=== PATIENT | male | born 1950 | race Caucasian/White ===

== ENCOUNTER → 2018-08-12 | Outpatient (CLI) | payer MEDICARE ==
[~2018-08-12] MED LIST: ABAC300; ALBU90OI INH; ASPI81CH PO; CHOL10002 PO; CITA20 PO; CLOP75 PO; CYAN1000 PO; HYDCHL50 PO; IRBE75 PO; ISOD40ER; ISOMON20 PO; LORA.5 PO; LOSA25; LOSHYD PO; METO25ER PO; OMEP20ER PO; PANT40 PO; PRAV20; PRAV20 PO; PRED20 PO; RANO500T PO; SIMV40 PO; SPACER IH
== END ==
LOC: LAB SHORT 17:40 → LAB 17:40
DX: L60.2 Onychogryphosis (principal); B35.1 Tinea unguium
CPT/HCPCS: 87220

== ENCOUNTER 2019-08-20 12:11 | Day surgery (SDC) | payer MEDICARE ==
[~2019-08-20] VITALS: Ht 182.9 cm; Wt 121.7 kg
[~2019-08-20 12:11] MED LIST changes: +ATORVASTATIN CA80 MG PO; +NARCAN4 MG NS; +Nitrostat0.4 MG SL; +Percocet 5-3251 EACH PO
== END 2019-08-20 14:05 | disposition home or self-care (01) ==
LOC: ORSCSDS 12:11
PROVIDERS: Internal Medicine Gastroenterology
PROC: 0DBH8ZX Excision of Cecum, Via Natural or Artificial Opening Endoscopic, Diagnostic (ICD-10-PCS; principal; 2019-08-20 13:30)
PROC: 0DBK8ZX Excision of Ascending Colon, Via Natural or Artificial Opening Endoscopic, Diagnostic (ICD-10-PCS; principal; 2019-08-20 13:30)
DX: Z12.11 Encounter for screening for malignant neoplasm of colon (principal); K63.5 Polyp of colon; K57.30 Diverticulosis of large intestine without perforation or abscess without bleeding; K64.8 Other hemorrhoids; Z86.010 Personal history of colon polyps; I10 Essential (primary) hypertension; E78.5 Hyperlipidemia, unspecified; G47.33 Obstructive sleep apnea (adult) (pediatric); J45.909 Unspecified asthma, uncomplicated; K21.9 Gastro-esophageal reflux disease without esophagitis; Z79.82 Long term (current) use of aspirin; Z79.899 Other long term (current) drug therapy
CPT/HCPCS: 88305; J2704; J7120

== ENCOUNTER 2020-08-22 13:09 | Emergency (ER) | payer MEDICARE, OTHER ==
[~2020-08-22] VITALS: Ht 182.9 cm; Wt 122.5 kg
[2020-08-22 13:45] LABS: BASOPHILS ABSOLUTE AUTO 0.05 K/mm3 (0.00-0.23); BASOPHILS PERCENT AUTO 1 % (0-2); EOSINOPHILS ABSOLUTE AUTO 0.16 K/mm3 (0.00-0.68); EOSINOPHILS PERCENT AUTO 2 % (0-6); Hematocrit 41.7 % (37.0-53.0); Hemoglobin 14.5 g/dL (13.5-17.5); IMMATURE GRAN ABSOLUTE AUTO 0.03 K/mm3 (0.00-0.10); IMMATURE GRAN PERCENT AUTO 0 % (0-1); LYMPHOCYTES ABSOLUTE AUTO 1.58 K/mm3 (0.84-5.20); LYMPHOCYTES PERCENT AUTO 22 % (21-46); MONOCYTES ABSOLUTE AUTO 0.73 K/mm3 (0.16-1.47); MONOCYTES PERCENT AUTO 10 % (4-13); Mean Corpuscular HGB 31.8 pg (26.0-34.0); Mean Corpuscular HGB Conc 34.8 g/dL (31.5-36.5); Mean Corpuscular Volume 91 fL (80-100); Mean Platelet Volume 9.4 fL (9.1-12.4); NEUTROPHILS ABSOLUTE AUTO 4.78 K/mm3 (1.96-9.15); NEUTROPHILS PERCENT AUTO 65 % (41-73); Platelet Count 284 K/mm3 (150-400); RDW Coefficient Variation 12.2 % (11.7-14.2); Red Blood Cell Count 4.56 M/mm3 (4.30-5.90); White Blood Cell Count 7.33 K/mm3 (4.00-11.30)
[2020-08-22 14:06] LABS: Alanine Aminotransfer (ALT/SGP 30 U/L (12-78); Albumin, Blood 3.4 g/dL (3.4-5.0); Albumin/Globulin Ratio 0.9 (0.8-1.8); Alk Phos 91 U/L (50-136); Anion Gap 8 mmol/L (6-16); Aspartate Aminotrans (AST/SGOT 20 U/L (12-37); Bilirubin, Total 0.6 mg/dL (0.1-1.0); Blood Urea Nitrogen 22 mg/dL (8-24); Bun/Creatinine Ratio 20.4 (12.0-20.0); CO2, Blood 26 mmol/L (21-32); Chloride, Blood 109 mmol/L (98-108); Creatinine, Blood 1.08 mg/dL (0.60-1.20); Globulin, Blood 3.7 g/dL (2.2-4.0); Glomerular Filtration Rate >60 (60-); Glucose, Blood 99 mg/dL (70-99); Potassium, Blood 3.8 mmol/L (3.5-5.5); Sodium, Blood 143 mmol/L (136-145); Total Protein, Blood 7.1 g/dL (6.4-8.2); Troponin I <0.015 ng/mL (0.000-0.040)
== END 2020-08-22 21:02 | disposition home or self-care (01) ==
LOC: ER 13:09
PROVIDERS: Physician Assistant
DX: J06.9 Acute upper respiratory infection, unspecified (principal); I10 Essential (primary) hypertension; I25.10 Atherosclerotic heart disease of native coronary artery without angina pectoris; F32.9 Major depressive disorder, single episode, unspecified; K21.9 Gastro-esophageal reflux disease without esophagitis; Z20.828 Contact with and (suspected) exposure to other viral communicable diseases; Z79.899 Other long term (current) drug therapy; Z79.82 Long term (current) use of aspirin
CPT/HCPCS: 36415; 71045; 80053; 84484; 85025; 99283-25; U0003

== ENCOUNTER 2022-12-26 09:43 | Day surgery (SDC) | payer MEDICARE ==
[~2022-12-26] VITALS: Ht 182.9 cm; Wt 120.6 kg
[2022-12-26] MEDS ORDERED: BENAZEPRIL-HCT1 EACH (10:01)
[2022-12-26] MEDS ORDERED: NITRO-DUR1 EAC3 (10:01)
[2022-12-26] MEDS ORDERED: ERGO400 (10:02)
[2022-12-26] MEDS ORDERED: DULO60 (10:02)
[2022-12-26] MEDS ORDERED: Cyclobenzaprine5 MG (10:02)
== END 2022-12-26 12:00 | disposition home or self-care (01) ==
LOC: ORSCSDS 09:43
PROVIDERS: Internal Medicine Gastroenterology
PROC: 0DBH8ZX Excision of Cecum, Via Natural or Artificial Opening Endoscopic, Diagnostic (ICD-10-PCS; principal; 2022-12-26 11:00)
PROC: 0DBL8ZX Excision of Transverse Colon, Via Natural or Artificial Opening Endoscopic, Diagnostic (ICD-10-PCS; principal; 2022-12-26 11:00)
DX: Z12.11 Encounter for screening for malignant neoplasm of colon (principal); Z86.010 Personal history of colon polyps; D12.0 Benign neoplasm of cecum; D12.3 Benign neoplasm of transverse colon; K57.30 Diverticulosis of large intestine without perforation or abscess without bleeding; K64.8 Other hemorrhoids; K21.9 Gastro-esophageal reflux disease without esophagitis; I10 Essential (primary) hypertension; E78.5 Hyperlipidemia, unspecified; I25.10 Atherosclerotic heart disease of native coronary artery without angina pectoris; G47.33 Obstructive sleep apnea (adult) (pediatric); Z79.899 Other long term (current) drug therapy; E66.9 Obesity, unspecified; Z68.36 Body mass index [BMI] 36.0-36.9, adult
CPT/HCPCS: 88305; J2704; J7120

== ENCOUNTER 2023-02-27 17:53 | Inpatient (IN) | payer MEDICARE ==
[~2023-02-27] VITALS: Ht 182.9 cm; Wt 128.0 kg
[~2023-02-27 17:53] MED LIST changes: +BENAZEPRIL-HCT1 EACH PO; +Cyclobenzaprine5 MG PO; +DULO60 PO; +ERGO400; +NITROGLYCERIN 0.1 MG TD
[2023-02-27] MEDS ORDERED: CARBIDOPA-LEVO1 EA15 PO (18:28)
[2023-02-27 18:34] LABS: BASOPHILS ABSOLUTE AUTO 0.02 K/mm3 (0.00-0.23); BASOPHILS PERCENT AUTO 0 % (0-2); EOSINOPHILS ABSOLUTE AUTO 0.01 K/mm3 (0.00-0.68); EOSINOPHILS PERCENT AUTO 0 % (0-6); Hematocrit 39.6 % (37.0-53.0); Hemoglobin 13.8 g/dL (13.5-17.5); IMMATURE GRAN ABSOLUTE AUTO 0.08 K/mm3 (0.00-0.10); IMMATURE GRAN PERCENT AUTO 1 % (0-1); LYMPHOCYTES ABSOLUTE AUTO 0.61 K/mm3 (0.84-5.20); LYMPHOCYTES PERCENT AUTO 5 % (21-46); MONOCYTES ABSOLUTE AUTO 0.81 K/mm3 (0.16-1.47); MONOCYTES PERCENT AUTO 7 % (4-13); Mean Corpuscular HGB Conc 34.8 g/dL (31.5-36.5); Mean Corpuscular Volume 89 fL (80-100); Mean Platelet Volume 9.5 fL (9.1-12.4); NEUTROPHILS ABSOLUTE AUTO 11.01 K/mm3 (1.96-9.15); NEUTROPHILS PERCENT AUTO 88 % (41-73); Platelet Count 231 K/mm3 (150-400); RDW Coefficient Variation 12.8 % (11.7-14.2); RDW Standard Deviation 42.2 fL (35.1-46.3); Red Blood Cell Count 4.45 M/mm3 (4.30-5.90); White Blood Cell Count 12.54 K/mm3 (4.00-11.30)
[2023-02-27 18:43] LABS: Albumin, Blood 3.7 g/dL (3.4-5.0); Albumin/Globulin Ratio 1.2 (0.8-1.8); Bilirubin, Total 1.4 mg/dL (0.1-1.0); Bun/Creatinine Ratio 17.9 (12.0-20.0); Calcium, Blood 8.7 mg/dL (8.5-10.1); Creatinine, Blood 1.06 mg/dL (0.60-1.20); Globulin, Blood 3.2 g/dL (2.2-4.0); Potassium, Blood 3.9 mmol/L (3.5-5.5); Total Protein, Blood 6.9 g/dL (6.4-8.2)
[2023-02-27 20:17] LABS: Source, Urine Clean Catch
[2023-02-27 20:44] LABS: Appearance, Urine Hazy (Clear); Bilirubin, Urine Neg (Neg); Blood, Urine 2+ (Neg); Color, Urine Yellow (P-Yellow); Glucose Qualitative, Urine Neg (Neg); Ketones, Urine Neg (Neg); Leukocyte Esterase, Urine 3+ (Neg); Nitrite, Urine Neg (Neg); Protein, Urine 2+ (Neg); Urobilinogen, Urine NORM (Normal)
[2023-02-27 21:13] LABS: Bacteria Many /hpf; Red Blood Cells, Urine 0-2 /hpf (0-2); Squamous Epithelial Cells Few /hpf (Few); White Blood Cells, Urine 50-100 /hpf (0-5)
[2023-02-27 21:23] LABS: Influenza A, PCR NEGATIVE (NEGATIVE); Influenza B, PCR NEGATIVE (NEGATIVE); Resp Syncytial Virus, PCR NEGATIVE (NEGATIVE); SARS-Cov-2 (COVID-19) PCR, MMC NEGATIVE (NEGATIVE)
[2023-02-28] VITALS (7 sets, daily range): BP systolic 104–146; BP diastolic 61–68
--- NOTE | 2023-02-28 00:35 | NUR ---
ADMIT NOTE; PT ARRIVES TO THE FLOOR VIA ED GURNEY. THE PT IS AXO X4 AND IS ABLE TO TRANSFER HIMSELF FROM THE ED GURNEY TO THE HOSPITAL BED WITH A STANDBY ASSIT. UPON ADMIT THE PT HAS NS RUNNING @500MLS AN HOUR. ONCE THAT FINISHES THE PT WILL BE STARTED ON HIS REGULAR NS INFUSION OF 75MLS/HR X1.5L. THE PT HAS A LOW GRADE FEVER OF 100.1 UPON ADMIT, BUT THE PT HAD ALREADY RECIEVED TYLENOL JUST PRIOR TO ADMIT DOWN IN THE ED. THE PT DENIES ANY PAIN, CHEST PAIN/PRESSURE OR SOB UPON ADMIT. WILL CONTINUE TO MONITOR THIS PT FOR THE REMAINDER OF THE SHIFT.
--- NOTE | 2023-02-28 04:33 | NUR ---
SHIFT SUMMARY; NO ACUTE CHANGES SINCE ADMIT. THE PT HAS BEEN SLEEPING IN BED SINCE ADMIT. THE PT IS AOX X4 AND STANDBY/1 ASSIST. THE PT USES THE CALL LIGHT APPROPRIATLEY TO COMMUNICATE HIS NEEDS. TELE IS IN PLACE, SINUS IN THE 'S. NS REMAINS RUNNING AT 75MLS/HR. THE PT DENIES ANY SOB, CHEST PAIN/PRESSURE OR PAIN. CURRENTLY THE PT IS LAYING IN BED WITH THE BED IN THE LOWEST POSITION AND THE CALL LIGHT AT BEDSIDE.
[2023-02-28 05:36] LABS: BASOPHILS ABSOLUTE AUTO 0.03 K/mm3 (0.00-0.23); BASOPHILS PERCENT AUTO 0 % (0-2); EOSINOPHILS ABSOLUTE AUTO 0.01 K/mm3 (0.00-0.68); EOSINOPHILS PERCENT AUTO 0 % (0-6); Hematocrit 34.1 % (37.0-53.0); Hemoglobin 11.7 g/dL (13.5-17.5); IMMATURE GRAN ABSOLUTE AUTO 0.11 K/mm3 (0.00-0.10); IMMATURE GRAN PERCENT AUTO 1 % (0-1); LYMPHOCYTES ABSOLUTE AUTO 0.76 K/mm3 (0.84-5.20); LYMPHOCYTES PERCENT AUTO 5 % (21-46); MONOCYTES ABSOLUTE AUTO 1.16 K/mm3 (0.16-1.47); MONOCYTES PERCENT AUTO 8 % (4-13); Mean Corpuscular HGB 31.2 pg (26.0-34.0); Mean Corpuscular HGB Conc 34.3 g/dL (31.5-36.5); Mean Corpuscular Volume 91 fL (80-100); Mean Platelet Volume 9.7 fL (9.1-12.4); NEUTROPHILS ABSOLUTE AUTO 12.07 K/mm3 (1.96-9.15); NEUTROPHILS PERCENT AUTO 85 % (41-73); Platelet Count 170 K/mm3 (150-400); RDW Coefficient Variation 13.2 % (11.7-14.2); RDW Standard Deviation 43.2 fL (35.1-46.3); Red Blood Cell Count 3.75 M/mm3 (4.30-5.90); White Blood Cell Count 14.14 K/mm3 (4.00-11.30)
[2023-02-28 06:47] LABS: Albumin, Blood 2.8 g/dL (3.4-5.0); Bilirubin, Total 1.6 mg/dL (0.1-1.0); Bun/Creatinine Ratio 17.2 (12.0-20.0); Calcium, Blood 7.3 mg/dL (8.5-10.1); Creatinine, Blood 1.22 mg/dL (0.60-1.20); Globulin, Blood 2.9 g/dL (2.2-4.0); Potassium, Blood 3.9 mmol/L (3.5-5.5); Total Protein, Blood 5.7 g/dL (6.4-8.2)
--- NOTE | 2023-02-28 19:29 | NUR ---
NO ACUTE CHANGES, MAKES NEEDS KNOWN, PLEASANT TO CARE, FAMILY HELPFUL WITH CARE. CALL LIGHT WITH IN REACH, WILL RELAY TO PM RN
[2023-03-01 04:47] VITALS: BP 119/70
[2023-03-01 05:07] LABS: BASOPHILS ABSOLUTE AUTO 0.04 K/mm3 (0.00-0.23); BASOPHILS PERCENT AUTO 0 % (0-2); EOSINOPHILS ABSOLUTE AUTO 0.03 K/mm3 (0.00-0.68); EOSINOPHILS PERCENT AUTO 0 % (0-6); Hematocrit 32.5 % (37.0-53.0); Hemoglobin 11.2 g/dL (13.5-17.5); IMMATURE GRAN ABSOLUTE AUTO 0.13 K/mm3 (0.00-0.10); IMMATURE GRAN PERCENT AUTO 1 % (0-1); LYMPHOCYTES ABSOLUTE AUTO 1.14 K/mm3 (0.84-5.20); LYMPHOCYTES PERCENT AUTO 9 % (21-46); MONOCYTES ABSOLUTE AUTO 0.91 K/mm3 (0.16-1.47); MONOCYTES PERCENT AUTO 7 % (4-13); Mean Corpuscular HGB 30.9 pg (26.0-34.0); Mean Corpuscular HGB Conc 34.5 g/dL (31.5-36.5); Mean Corpuscular Volume 90 fL (80-100); Mean Platelet Volume 9.6 fL (9.1-12.4); NEUTROPHILS ABSOLUTE AUTO 11.17 K/mm3 (1.96-9.15); NEUTROPHILS PERCENT AUTO 83 % (41-73); Platelet Count 158 K/mm3 (150-400); RDW Coefficient Variation 13.1 % (11.7-14.2); RDW Standard Deviation 42.9 fL (35.1-46.3); Red Blood Cell Count 3.62 M/mm3 (4.30-5.90); White Blood Cell Count 13.42 K/mm3 (4.00-11.30)
--- NOTE | 2023-03-01 05:24 | NUR ---
SHIFT SUMMARY PT PARTICIPATED IN BEDSIDE REPORT- PT SITTING UP IN BED DURING REPORT, IV INFUSING WITHOUT PROBLEMS-NOTIFIED DR. GALINDO 2ND BLOOD CULTURES GREW GRAM + CLUSTERS- NO NEW ORDERS FOR ABX- PHYSICIAN BELIEVED CONTAMINATED SAMPLE- 2129 PT AMBULATED TO BATHROOM- PT REPORTED FEELING SOB AFTER RETURNING FROM BATHROOM- ENCOURAGED PT TO SLOW DOWN BREATHING - VITALS CHECKED, TEMP DECREASED FROM PREVIOUS- PT RECOVERED AFTER A FEW MINUTES - PT SLEPT T/O MOST OF THE NIGHT BED LOW POSITION, CALL LIGHT WITHIN REACH
[2023-03-01 05:35] LABS: Bun/Creatinine Ratio 17.1 (12.0-20.0); Calcium, Blood 7.8 mg/dL (8.5-10.1); Creatinine, Blood 1.05 mg/dL (0.60-1.20); Potassium, Blood 3.7 mmol/L (3.5-5.5)
[2023-03-01 07:37] VITALS: BP 127/72
[2023-03-01 15:33] VITALS: BP 128/79
--- NOTE | 2023-03-01 18:20 | NUR ---
SHIFT SUMMARY: PT A&O X4, PLEASANT, HAPPY AND ABLE TO VOICE NEEDS. PT VITALS STABLE AND TEMPTURE >99.0. PT HAD MILD HEADCHE AND TENDER ABDOMEN WITH PALPATION. PT RECEVIED TYLENOL 650MG FOR MILD PAIN. PT HAD LOOSE STOOLS X2 AT THE BEGININNG OF THE SHIFT, NO FURTHER LOOSE STOOLS STATED BY PT. PT ABLE TO AMBULATE TO THE RESTROOM WITH 1 PERSON ASSIST WITH FWW. PT STATED FEELING LIGHTHEADED AND DIZZY AFTER TRANSFER, NO SYMPTOMS AFTER SITTING. PT HAD FAMILY AT BEDSIDE DURING THE SHIFT FOR SUPPORT AND CARE. PT IN BED WITH CALL LIGHT WITHIN REACH.
[2023-03-01 19:43] VITALS: BP 132/81
[2023-03-02 04:00] VITALS: BP 129/79
[2023-03-02 05:07] LABS: Bun/Creatinine Ratio 15.5 (12.0-20.0); Calcium, Blood 8.1 mg/dL (8.5-10.1); Creatinine, Blood 1.03 mg/dL (0.60-1.20); Potassium, Blood 3.3 mmol/L (3.5-5.5)
--- NOTE | 2023-03-02 06:39 | NUR ---
SHIFT SUMMARY PT SITTING UP IN BED DURING BEDSIDE ROUND, PT REPORTS FEELING BETTER AND EXPRESSES HOPING TO GO HOME TOMORROW CALL TO JOSIE AGUIRRE RE: PT DULOXETINE ORDERED TO START TOMORROW- PER PT HE TAKES AT NIGHT AND IT HELPS WITH SLEEP PT STARTED ON PROBIOTIC FOR C/O DIARRHEA NIGHT BEFORE - PT SLEPT T/O NIGHT, BED LOW POSITION, CALL LIGHT WITHIN REACH, PT INDEPENDENT IN ROOM
[2023-03-02 07:28] VITALS: BP 126/77
[2023-03-02 15:36] VITALS: BP 136/78
--- NOTE | 2023-03-02 18:43 | NUR ---
SHIFT SUMMARY NO CHANGES THIS SHIFT. PTN INDEPENDENT IN ROOM WITH FAMILY AND VISITORS PRESENT MOST OF DAY. TELEMETRY MONITORING D/C'D THIS SHIFT. PLAN FOR PTN TO STAY UNTIL SATURDAY FOR CONTINUED IV ANTIBIOTIC. CONTINUE TO MONITOR.
[2023-03-02 19:12] VITALS: BP 136/78
[2023-03-03 03:21] VITALS: BP 144/87
[2023-03-03 04:58] LABS: BASOPHILS ABSOLUTE AUTO 0.03 K/mm3 (0.00-0.23); BASOPHILS PERCENT AUTO 1 % (0-2); EOSINOPHILS ABSOLUTE AUTO 0.25 K/mm3 (0.00-0.68); EOSINOPHILS PERCENT AUTO 4 % (0-6); Hematocrit 35.8 % (37.0-53.0); Hemoglobin 12.3 g/dL (13.5-17.5); IMMATURE GRAN ABSOLUTE AUTO 0.05 K/mm3 (0.00-0.10); IMMATURE GRAN PERCENT AUTO 1 % (0-1); LYMPHOCYTES ABSOLUTE AUTO 1.18 K/mm3 (0.84-5.20); LYMPHOCYTES PERCENT AUTO 21 % (21-46); MONOCYTES ABSOLUTE AUTO 0.76 K/mm3 (0.16-1.47); MONOCYTES PERCENT AUTO 13 % (4-13); Mean Corpuscular HGB 30.7 pg (26.0-34.0); Mean Corpuscular HGB Conc 34.4 g/dL (31.5-36.5); Mean Corpuscular Volume 89 fL (80-100); NEUTROPHILS ABSOLUTE AUTO 3.44 K/mm3 (1.96-9.15); NEUTROPHILS PERCENT AUTO 60 % (41-73); Platelet Count 211 K/mm3 (150-400); RDW Coefficient Variation 12.6 % (11.7-14.2); RDW Standard Deviation 41.7 fL (35.1-46.3); Red Blood Cell Count 4.01 M/mm3 (4.30-5.90); White Blood Cell Count 5.71 K/mm3 (4.00-11.30)
[2023-03-03 05:45] LABS: Bun/Creatinine Ratio 18.3 (12.0-20.0); Calcium, Blood 8.5 mg/dL (8.5-10.1); Creatinine, Blood 1.04 mg/dL (0.60-1.20); Potassium, Blood 3.7 mmol/L (3.5-5.5)
--- NOTE | 2023-03-03 06:44 | NUR ---
SHIFT SUMMARY PT SITTING UP IN BED VISTING WITH TSERING DURING BEDSIDE ROUNDS- PT REPORTS FEELING BETTER - GAVE TYLENOL WITH HS MEDS FOR PT LOW GRADE FEVER, PT APPLIED HOME CPAP - PT LAYING IN BED WITH EYES CLOSED, NO S/S DISTRESS/PAIN -PT SLEPT MOST OF THE NIGHT- BED LOW POSITION, CALL LIGHT WITHIN REACH, PT INDEPENDENT IN ROOM
[2023-03-03 07:22] VITALS: BP 136/80
[2023-03-03 15:15] VITALS: BP 114/73
[2023-03-03 19:13] VITALS: BP 138/78
--- NOTE | 2023-03-03 19:30 | NUR ---
SHIFT SUMMARY NO CHANGES NOTED. PTN LOOKING FORWARD TO POSSIBLE D/C TOMORROW.
[2023-03-04 05:15] VITALS: BP 146/82
--- NOTE | 2023-03-04 05:50 | NUR ---
SHIFT SUMMARY PT SITTING UP IN BED VISITING WITH TSERING AT BEDSIDE- PT REPORTS FEELING GOOD- PT TOOK HS MEDS WITHOUT PROBLEMS MEDICATED WITH TYLENOL FOR PATIENT HAS ELEVATED TEMPATURES AT TIMES- PT INDEPENDENT IN ROOM- PT SLEPT T/O NIGHT HOME CPAP IN PLACE
[2023-03-04 07:17] VITALS: BP 125/80
[2023-03-04] MEDS ORDERED: VISBIOME 112.51 EACH PO (10:07)
[2023-03-04] MEDS ORDERED: CEPH500 PO (10:07)
--- NOTE | 2023-03-04 11:00 | NUR ---
PT DISCHARGED 1037 WITH DC INSTRUCTIONS. WHEELCHAIR OUTSIDE FOR A PRIVATE CAR RIDE HOME FROM HIS FRIEND. HAS CELL PHONE AND BAG OF BELONGINGS SENT HOME WITH PT
== END 2023-03-04 10:38 | disposition home or self-care (01) | DRG 872 ==
LOC: ER 17:53 → MEDS 17:54
PROVIDERS: Family Medicine; Internal Medicine; Physician Assistant; Student in an Organized Health Care Education/Training Program; ADMIT Internal Medicine
PROC: 3E03329 Introduction of Other Anti-infective into Peripheral Vein, Percutaneous Approach (ICD-10-PCS; principal; 2023-02-28)
PROC: 5A09357 Assistance with Respiratory Ventilation, Less than 24 Consecutive Hours, Continuous Positive Airway Pressure (ICD-10-PCS; 2023-02-28)
DX: A41.50 Gram-negative sepsis, unspecified (principal); N39.0 Urinary tract infection, site not specified; E87.20 Acidosis, unspecified; N17.9 Acute kidney failure, unspecified; R65.20 Severe sepsis without septic shock; A41.1 Sepsis due to other specified staphylococcus; G20 Parkinson's disease; E86.0 Dehydration; N18.30 Chronic kidney disease, stage 3 unspecified; D63.1 Anemia in chronic kidney disease; E87.6 Hypokalemia; I12.9 Hypertensive chronic kidney disease with stage 1 through stage 4 chronic kidney disease, or unspecified chronic kidney disease; F32.A Depression, unspecified; I25.10 Atherosclerotic heart disease of native coronary artery without angina pectoris; K21.9 Gastro-esophageal reflux disease without esophagitis; E78.00 Pure hypercholesterolemia, unspecified; G47.33 Obstructive sleep apnea (adult) (pediatric); M54.50 Low back pain, unspecified; G89.29 Other chronic pain; R74.8 Abnormal levels of other serum enzymes; Z20.822 Contact with and (suspected) exposure to COVID-19; Z79.899 Other long term (current) drug therapy; Z79.02 Long term (current) use of antithrombotics/antiplatelets; Z79.891 Long term (current) use of opiate analgesic; Z90.49 Acquired absence of other specified parts of digestive tract; Z98.890 Other specified postprocedural states; E66.9 Obesity, unspecified; Z68.36 Body mass index [BMI] 36.0-36.9, adult
CPT/HCPCS: 0241U; 36415; 70450; 71046; 80048; 80053; 81001; 82947; 83605; 83690; 84484; 85025; 87040; 87077; 87086; 87186; 93005; 93010; 96365; 96375; 99285-25; A9270; G0378; J0696; J1650; J1885; J7030

== ENCOUNTER 2023-03-27 17:38 | Emergency (ER) | payer MEDICARE ==
[~2023-03-27] VITALS: Ht 182.9 cm; Wt 122.5 kg
[~2023-03-27 17:38] MED LIST changes: +CARBIDOPA-LEVO1 EA15 PO; +CEPH500 PO; +VISBIOME 112.51 EACH PO
[2023-03-27 18:07] LABS: BASOPHILS ABSOLUTE AUTO 0.05 K/mm3 (0.00-0.23); BASOPHILS PERCENT AUTO 1 % (0-2); EOSINOPHILS ABSOLUTE AUTO 0.17 K/mm3 (0.00-0.68); EOSINOPHILS PERCENT AUTO 3 % (0-6); Hematocrit 41.7 % (37.0-53.0); Hemoglobin 14.6 g/dL (13.5-17.5); IMMATURE GRAN ABSOLUTE AUTO 0.01 K/mm3 (0.00-0.10); IMMATURE GRAN PERCENT AUTO 0 % (0-1); LYMPHOCYTES ABSOLUTE AUTO 1.94 K/mm3 (0.84-5.20); LYMPHOCYTES PERCENT AUTO 34 % (21-46); MONOCYTES PERCENT AUTO 12 % (4-13); Mean Corpuscular HGB 30.9 pg (26.0-34.0); Mean Corpuscular Volume 88 fL (80-100); Mean Platelet Volume 9.6 fL (9.1-12.4); NEUTROPHILS ABSOLUTE AUTO 2.81 K/mm3 (1.96-9.15); NEUTROPHILS PERCENT AUTO 49 % (41-73); Platelet Count 257 K/mm3 (150-400); RDW Coefficient Variation 12.5 % (11.7-14.2); RDW Standard Deviation 40.4 fL (35.1-46.3); Red Blood Cell Count 4.73 M/mm3 (4.30-5.90); White Blood Cell Count 5.68 K/mm3 (4.00-11.30)
[2023-03-27 18:24] LABS: Albumin, Blood 3.8 g/dL (3.4-5.0); Bun/Creatinine Ratio 21.9 (12.0-20.0); Calcium, Blood 8.8 mg/dL (8.5-10.1); Creatinine, Blood 1.05 mg/dL (0.60-1.20); Globulin, Blood 3.7 g/dL (2.2-4.0); Potassium, Blood 3.9 mmol/L (3.5-5.5); Total Protein, Blood 7.5 g/dL (6.4-8.2)
[2023-03-27 18:39] LABS: Source, Urine Clean Catch
[2023-03-27 18:42] LABS: Appearance, Urine Hazy (Clear); Bilirubin, Urine Neg (Neg); Blood, Urine 1+ (Neg); Color, Urine Yellow (P-Yellow); Glucose Qualitative, Urine Neg (Neg); Ketones, Urine Neg (Neg); Leukocyte Esterase, Urine 2+ (Neg); Nitrite, Urine Pos (Neg); Protein, Urine 2+ (Neg); Specific Gravity, Urine 1.015 (1.003-1.022); Urobilinogen, Urine NORM (Normal)
[2023-03-27 18:45] VITALS: BP 116/74
[2023-03-27 18:48] LABS: Bacteria Many /hpf; Squamous Epithelial Cells Few /hpf (Few); Transitional Epithelial Cells Rare /hpf (0-Rare); White Blood Cells, Urine 25-50 /hpf (0-5)
[2023-03-27] MEDS ORDERED: CEPH500 PO (20:20)
== END 2023-03-27 20:52 | disposition home or self-care (01) ==
LOC: ER 17:38
PROVIDERS: Physician Assistant
DX: N39.0 Urinary tract infection, site not specified (principal); I10 Essential (primary) hypertension; K21.9 Gastro-esophageal reflux disease without esophagitis; I25.10 Atherosclerotic heart disease of native coronary artery without angina pectoris; G47.33 Obstructive sleep apnea (adult) (pediatric); Z79.899 Other long term (current) drug therapy
CPT/HCPCS: 51798; 80053; 81001; 85025; J0696

== ENCOUNTER 2023-10-02 12:47 | Day surgery (SDC) | payer MEDICARE ==
[~2023-10-02] VITALS: Ht 182.9 cm; Wt 107.3 kg
[2023-10-02] MEDS ORDERED: ATOR10 (13:15)
--- NOTE | 2023-10-02 14:05 | NUR ---
10/02/23 1405 NILSON FLORES PER , RAJENDRA ORDERS NEBULIZED 4% LIDOCAINE UPDRAFT PRIOR TO ENTERING OR FOR PROCEDURE AND GLYCO 0.2 MG/ML, 1ML GIVEN IV
[2023-10-02 15:01] VITALS: BP 123/71
== END 2023-10-02 15:03 | disposition home or self-care (01) ==
LOC: ORSCSDS 12:47
PROVIDERS: Internal Medicine Gastroenterology
PROC: 0DB58ZX Excision of Esophagus, Via Natural or Artificial Opening Endoscopic, Diagnostic (ICD-10-PCS; principal; 2023-10-02 14:00)
PROC: 0DB78ZX Excision of Stomach, Pylorus, Via Natural or Artificial Opening Endoscopic, Diagnostic (ICD-10-PCS; principal; 2023-10-02 14:00)
PROC: 0D757ZZ Dilation of Esophagus, Via Natural or Artificial Opening (ICD-10-PCS; principal; 2023-10-02 14:00)
DX: R13.10 Dysphagia, unspecified (principal); K21.9 Gastro-esophageal reflux disease without esophagitis; K29.70 Gastritis, unspecified, without bleeding; G47.33 Obstructive sleep apnea (adult) (pediatric); I10 Essential (primary) hypertension; I25.10 Atherosclerotic heart disease of native coronary artery without angina pectoris; I25.2 Old myocardial infarction; E78.5 Hyperlipidemia, unspecified; G20.A1 Parkinson's disease without dyskinesia, without mention of fluctuations; J45.909 Unspecified asthma, uncomplicated; F41.9 Anxiety disorder, unspecified; Z79.899 Other long term (current) drug therapy
CPT/HCPCS: 88305; 88342; J2001; J2704; J7120